=== PATIENT | female | born 1990 | race Caucasian/White ===

== ENCOUNTER 2017-12-12 05:30 | Inpatient (IN) | payer OTHER ==
[2017-12-12 06:27] VITALS: BMI 31.8
[2017-12-12] MEDS: Lactated Ringer's 1,000 ML IV SCH ×2 (06:50→14:17)
[2017-12-12 07:28] LABS: Hemoglobin 9.5 g/dL (12.0-16.0); Mean Corpuscular HGB CONC 34.4 g/dL (32.0-36.0); Mean Corpuscular Hemoglobin 28.2 pg (27.0-31.0); Mean Corpuscular Volume 82.1 fl (81.0-99.0); Mean Platelet Volume 7.8 fL (7.4-10.4); Platelet Count 194 thou/uL (130-400); RBC Distribution Width 15.7 % (11.5-14.5); Red Blood Cell (RBC) Count 3.35 mill/uL (4.20-5.40); White Blood Cell (WBC) Count 9.1 thou/uL (4.8-10.8)
[2017-12-12] MEDS ORDERED: LR 500 ML/Oxytocin 10 units 500 ML IVPB SCH (07:30)
[2017-12-12 08:01] LABS: Syphilis Antibody Nonreactive (Nonreactive); Syphilis Antibody Index 0.08 S/CO (<1.00 Non-Reactive)
[2017-12-12 08:02] LABS: HBSAg Index 0.14 S/CO (0-0.99); Hep B Surf Ag Non-Reactive S/CO (NonReactive)
[2017-12-12] MEDS ORDERED: Carboprost 250 MCG/ML AMP IM PRN (08:23)
[2017-12-12] MEDS ORDERED: Diphenoxylate HCl/Atropine Tablet PO PRN (08:23)
--- NOTE | 2017-12-12 08:27 | PDOC.LDHP ---
Labor and Delivery H&P Chief complaint: scheduled induction HPI: @ 37w0d by LMP c/w 8 week sono who presents for IOL due to cholestasis. Pt also FVL and F2 heterozygote, on PPX LOvenox, last dose was Tuesday. Current gestational age (weeks): 37 Due date: 01/02/18 Dating criteria: last menstrual period Grav: 7 Para: 4 OB History Details: 3 term SVDs @ 37 weeks, IOL for cholestasis 1 # 35 weeks IOL cholestasis and PreEclampsia 1 ectopic 1 SAB Current complications: other (ICHP) Previous surgical history: none Allergies/Adverse Reactions: Allergies Allergy/AdvReac Type Severity Reaction Status Date / Time No Known Allergies Allergy Verified 12/12/17 06:30 Social history: none - Physical Exam Vital signs reviewed and normal: yes General: NAD Heart: RRR Lungs: nonlabored breathing Abdomen: gravid Extremeties: no edema FHT: category 1 (120s, mod kassandra, +accels, no decels) [place] contractions every: q2-4min - Vaginal Exam cm dilated: 2 (cephalic) Effacement: 50% Station: -3 - OB Labs Blood type: O RH: negative Antibody Screen: negative HIV: negative RPR: negative HEPSAg: negative 1 hour GCT: negative GBS: negative Urine drug screen: negative Rubella: immune Additional Labs: LFTs wnl BA 34.1 - Assessment 37 week IUP IOL for ICP FVL and F2 mutation - Plan Plan: admit to L&D, informed consent obtained (Pitocin for IOL Restart lovenox 6 hrs after delivery), anesthesia consult for pain management
[2017-12-12] MEDS ORDERED: Methylergonovine 0.2 MG/ML VIAL IM SCH (08:30)
--- NOTE | 2017-12-12 13:25 | PDOC.LDPN ---
Labor & Delivery Progress Note - Subjective Subjective: comfortable - Objective Vital signs reviewed and normal: yes General: resting Uterine fundus: non tender Dilation: 3 Effacement: 50% Station: -2 FHT: category 1 (120s, mod kassandra, +accels, no decels ) [place] contractions every: q1-2 min AROM: clear fluid IUPC placed: yes - Assessment (1) Cholestasis during Code(s): O26.619 - LIVER AND BILIARY TRACT DISORD IN , UNSP TRIMESTER; K83.1 - OBSTRUCTION OF BILE DUCT Current Visit: Yes Status: Acute (2) 37 weeks gestation of Code(s): Z3A.37 - 37 WEEKS GESTATION OF Current Visit: Yes Status : Acute Plan: continue plan of care, pitocin for augmentation
[2017-12-12] MEDS ORDERED: LR / Pitocin 40 units/1000 ml 1,000 ML ONE (18:20)
[2017-12-12] MEDS ORDERED: Lidocaine 1% (PF) 30 ML VIAL ONE (18:20)
--- NOTE | 2017-12-12 19:10 | PDOC.OPDEL ---
OB Operative/Delivery Note Delivery Dr/Surgeon: Darlyn Dixon DO Pre-Delivery Diagnosis: medically indicated induction (ICP @ 37 weeks) Procedure/Post Delivery Dx: spontaneous vaginal delivery Weeks gestation: 37 Anesthesia: none - Findings A Sex: female - 1 min: 8 - 5 min: 9 - Additional Findings/Plan Placenta delivered: spontaneous Repaired Obstetrical Laceration: none Estimated blood loss: 200 cc Compilations/Other Findings: Infant delivered in cephalic presentation, MONISHA position Nuchal cord x1 Clear AF Normal appearing placenta Post delivery plan: routine recovery (restart Lovenox PP)
[2017-12-12] MEDS ORDERED: Ondansetron HCl/PF 4 MG/2 ML Vial IVP PRN (22:28)
[2017-12-12] MEDS ORDERED: diphenhydrAMINE 25 MG CAP PO PRN (22:28)
[2017-12-12] MEDS ORDERED: Benzocaine/Menthol 20-0.5% 60 ML CAN TOP PRN (22:28)
[2017-12-12] MEDS ORDERED: Promethazine HCl 25 MG/ML VIAL IM PRN (22:28)
[2017-12-12] MEDS ORDERED: Milk Of Magnesia 30 ML UDCUP PO PRN (22:28)
[2017-12-12] MEDS ORDERED: Bisacodyl 10 MG SUPP PR PRN (22:28)
[2017-12-12] MEDS ORDERED: Misoprostol 200 MCG TAB VAG SCH (22:28)
[2017-12-12] MEDS ORDERED: Preparation H Ointment 28 GM TUBE PR PRN (22:28)
[2017-12-12] MEDS ORDERED: traMADol HCl 50 MG TAB PO PRN (22:28)
[2017-12-12] MEDS ORDERED: Methylergonovine 0.2 MG/ML VIAL IM PRN (22:28)
[2017-12-12] MEDS ORDERED: LR / Pitocin 40 units/1000 ml 1,000 ML IV SCH (22:28)
[2017-12-12] MEDS: Ibuprofen 800 MG TAB PO SCH (23:02)
[2017-12-12] MEDS ORDERED: Docusate Calcium (SURFAK) 240 MG CAP PO SCH (23:15)
[2017-12-13] MEDS: Enoxaparin Sodium 40 MG/0.4 ML SYRINGE SC SCH (00:59)
[2017-12-13] MEDS: Ibuprofen 800 MG TAB PO SCH ×3 (05:47→21:49)
[2017-12-13 05:59] LABS: Hemoglobin 8.8 g/dL (12.0-16.0); Mean Corpuscular HGB CONC 33.4 g/dL (32.0-36.0); Mean Corpuscular Hemoglobin 26.8 pg (27.0-31.0); Mean Corpuscular Volume 80.3 fl (81.0-99.0); Mean Platelet Volume 7.5 fL (7.4-10.4); Platelet Count 181 thou/uL (130-400); RBC Distribution Width 15.4 % (11.5-14.5); Red Blood Cell (RBC) Count 3.28 mill/uL (4.20-5.40); White Blood Cell (WBC) Count 10.7 thou/uL (4.8-10.8)
--- NOTE | 2017-12-13 08:05 | PDOC.PP ---
Post Progress Note Post Day #: 1 PO intake tolerated: yes Flatus: yes Ambulation: yes Vital Signs (12 hours) Temp Pulse Resp BP Pulse Ox 12/13/17 05:44 98.2 F 78 16 12/13/17 00:50 98.3 F 113 H 20 140/80 12/12/17 23:05 98.7 F 101 H 20 137/85 12/12/17 22:15 98.0 F 115 H 18 150/93 H 99 Weight Weight 174 lb - Physical Examination General: NAD Cardiovascular: RRR Respiratory: non-labored breathing Abdominal: no distention, appropriately TTP Fundus firm & at: umb Extremities: negative homans (B) Skin: no rash Neurological: no gross focal deficits Psychiatric: normal affect Result Diagrams: 12/13/17 05:43 Additional Labs: Post Labs Blood Type O NEGATIVE 12/12/17 06:50 Hep Bs Antigen Non-Reactive S/CO (NonReactive) 12/12/17 06:50 (1) Term delivered Code(s): O80 - ENCOUNTER FOR FULL-TERM UNCOMPLICATED DELIVERY Status: Acute - Assessment/Plan VSSAF Doing well lochia appropriate Thrombophilia- restarted lovenox Chronic anemia- iron deficiency, DC on Iron and PNV Rhpos RImm Cont care.
[2017-12-13] MEDS: Ferrous Sulfate 325 MG TAB PO SCH ×2 (10:03→18:50)
[2017-12-13] MEDS: Docusate Calcium (SURFAK) 240 MG CAP PO SCH ×2 (10:03→21:53)
[2017-12-14] MEDS: Enoxaparin Sodium 40 MG/0.4 ML SYRINGE SC SCH (00:38)
[2017-12-14] MEDS: Ibuprofen 800 MG TAB PO SCH (05:54)
--- NOTE | 2017-12-14 08:23 | PDOC.PP ---
Post Progress Note Post Day #: 2 PO intake tolerated: yes Flatus: yes Ambulation: yes Weight Weight 174 lb - Physical Examination General: NAD Cardiovascular: RRR Respiratory: non-labored breathing Abdominal: no distention, appropriately TTP Fundus firm & at: below umbilicus Extremities: negative homans (B) Skin: no rash Neurological: no gross focal deficits Psychiatric: A&Ox3, normal affect Result Diagrams: 12/13/17 05:43 Additional Labs: Post Labs Blood Type O NEGATIVE 12/12/17 06:50 Hep Bs Antigen Non-Reactive S/CO (NonReactive) 12/12/17 06:50 (1) Cholestasis during Code(s): O26.619 - LIVER AND BILIARY TRACT DISORD IN , UNSP TRIMESTER; K83.1 - OBSTRUCTION OF BILE DUCT Status: Resolved (2) 37 weeks gestation of Code(s): Z3A.37 - 37 WEEKS GESTATION OF Status: Resolved (3) (spontaneous vaginal delivery) Code(s): O80 - ENCOUNTER FOR FULL-TERM UNCOMPLICATED DELIVERY Status: Acute (4) Anemia Code(s): D64.9 - ANEMIA, UNSPECIFIED Status: Acute Qualifiers: Anemia type: iron deficiency - Assessment/Plan PPD2 VSSAF Minimal bleeding. Lovenox restarted. Meeting requirements for discharge. D/C home today with rx for Lovenox, Iron and Motrin. F/U HP 6 weeks.
[2017-12-14 08:30] VITALS: BP 130/74; TEMP 98.5
[2017-12-14] MEDS: Ferrous Sulfate 325 MG TAB PO SCH (09:41)
[2017-12-14] MEDS: Docusate Calcium (SURFAK) 240 MG CAP PO SCH (09:50)
== END 2017-12-14 10:25 | disposition home or self-care (01) | DRG 775 ==
LOC: L&D 06:11 → 3SE 22:15
PROVIDERS: ADMIT Obstetrics & Gynecology; ATTEND Obstetrics & Gynecology
PROC: 10E0XZZ Delivery of Products of Conception, External Approach (ICD-10-PCS; principal; 2017-12-12)
PROC: 10907ZC Drainage of Amniotic Fluid, Therapeutic from Products of Conception, Via Natural or Artificial Opening (ICD-10-PCS; 2017-12-12)
PROC: 3E033VJ Introduction of Other Hormone into Peripheral Vein, Percutaneous Approach (ICD-10-PCS; 2017-12-12)
DX: O26.62 Liver and biliary tract disorders in childbirth (principal); K83.1 Obstruction of bile duct; O99.02 Anemia complicating childbirth; Z37.0 Single live birth; Z3A.38 38 weeks gestation of pregnancy
CPT/HCPCS: 36415; 85027; 86780; 86850; 86900; 86901; 87340; 99285; J1650; J2001; J7120